=== PATIENT | male | born 1990 | race Caucasian/White ===

== ENCOUNTER 2023-11-05 13:26 | Emergency (ER) | payer SELFPAY ==
[~2023-11-05] VITALS: Ht 171.4 cm; Wt 92.5 kg
[2023-11-05 13:49] VITALS: BP 117/75; PULSE 85; RESP 20; TEMP 99; O2SAT 99
[2023-11-05] MEDS: IBUPROFEN 600 MG TAB PO ONE (15:55)
[2023-11-05] MEDS ORDERED: SUD30 PO (16:54)
[2023-11-05] MEDS ORDERED: AMOX500C25 PO (16:54)
[2023-11-05] MEDS ORDERED: OFLO10SO16 LEFT EAR (16:54)
[2023-11-05] MEDS ORDERED: IBUP-2213 PO (16:54)
== END 2023-11-05 17:23 | disposition home or self-care (01) ==
LOC: MED 13:26
DX: H60.502 Unspecified acute noninfective otitis externa, left ear (principal); R51.9 Headache, unspecified; R09.81 Nasal congestion; Z79.899 Other long term (current) drug therapy
CPT/HCPCS: 99283